=== PATIENT | male | born 1955 | race African-American/Black ===

== ENCOUNTER 2019-05-06 10:06 | Emergency (ER) | payer SELFPAY ==
[~2019-05-06] VITALS: Ht 188 cm; Wt 58.0 kg
[2019-05-06 10:36] LABS: EOSINOPHILS % (AUTO) 0.8 % (1.0-6.0); HEMATOCRIT 44.9 % (41-53); HEMOGLOBIN 15.1 g/dL (13.5-17.5); LYMPHOCYTES # (AUTO) 1.5 K/uL (1.0-4.8); MEAN CORPUSCULAR HEMOGLOBIN 33.8 pg (26.0-34.0); MEAN CORPUSCULAR HGB CONC 33.5 G/dL (31.0-37.0); MEAN CORPUSCULAR VOLUME 101 fL (80-100); MONOCYTES # (AUTO) 0.6 K/uL (0.1-1.0); NEUTROPHILS # (AUTO) 3.1 K/uL (1.8-7.7); NEUTROPHILS % (AUTO) 58.2 % (40.0-70.0); PLATELET COUNT (AUTO) 198 K/uL (150-450); RED BLOOD CELL COUNT(AUTO) 4.46 MIL/uL (4.50-5.90); RED CELL DISTRIBUTION WIDTH 14.1 % (11.5-14.5)
[2019-05-06] MEDS ORDERED: IOVERSOL 350 MG/ML 100 ML VIAL ONE (10:41)
[2019-05-06] MEDS ORDERED: SODIUM CHLORIDE 0.9% 100 ML ONE (10:41)
[2019-05-06 10:50] LABS: ANION GAP 12 mmol/L (8-16); CALCIUM, TOTAL 9.1 mg/dL (8.8-10.5); CARBON DIOXIDE 26 mmol/L (22-29); CHLORIDE 100 mmol/L (98-107); CREATININE 0.76 mg/dL (0.60-1.30); GLUCOSE,RANDOM 101 mg/dL (70-110); POTASSIUM 4.6 mmol/L (3.5-5.1); SODIUM SERUM 138 mmol/L (136-145); UREA NITROGEN, BLOOD 6 mg/dL (7-18)
[2019-05-06 10:51] LABS: GLOMERULAR FILTR. RATE CALC > 60 mL/min (>60)
[2019-05-06 10:56] LABS: ALANINE AMINOTRANSFERASE 31 U/L (12-78); ALKALINE PHOSPHATASE 88 U/L (46-116); ASPARTATE AMINOTRANSFERASE 60 U/L (15-37); BILIRUBIN,TOTAL 0.6 mg/dL (0.1-1.0); TOTAL PROTEIN, SERUM 7.8 g/dL (6.4-8.2)
[2019-05-06] MEDS ORDERED: ALTEPLASE PER STROKE PROTOCOL CLINICAL ONE (11:15)
[2019-05-06] MEDS ORDERED: ALTEPLASE IV ONE (11:20)
[2019-05-06] MEDS ORDERED: ALTEPLASE 5.2 MG in WATER FOR INJECTION,STERILE 5.2 ML IV ONE (11:20)
[2019-05-06] MEDS ORDERED: WATER FOR INJECTION STERILE IV ONE (11:20)
[2019-05-06] MEDS ORDERED: LIDOCAINE 1% 10 ML VIAL INJ ONE (11:30)
[2019-05-06 11:50] LABS: AMMONIA 40 umol/L (11-32)
[2019-05-06 11:52] LABS: INR 1.1 (0.9-1.1); PROTHROMBIN TIME 11.5 SEC (9.4-11.6); TROPONIN I < 0.02 ng/mL (0.00-0.05)
[2019-05-06] MEDS ORDERED: NiCARDipine HCL 25 MG in DEXTROSE 5%-WATER 240 ML IV PRN (12:17)
[2019-05-06 12:38] VITALS: BP 162/110
== END 2019-05-06 13:31 | disposition short-term general hospital (02) ==
LOC: EMS 10:08 → EDBD 10:08 → EMS 13:31
DX: S61.210A Laceration without foreign body of right index finger without damage to nail, initial encounter (principal); I63.9 Cerebral infarction, unspecified; I48.91 Unspecified atrial fibrillation; Z59.0 Homelessness; X58.XXXA Exposure to other specified factors, initial encounter; Y93.89 Activity, other specified; Y92.89 Other specified places as the place of occurrence of the external cause; Y99.8 Other external cause status
CPT/HCPCS: 12001; 36415; 37195; 70450; 70496; 71045; 80053; 82140; 84484; 85025; 85610; 85730; 86850; 86900; 86901; 93005; 96365; 99291; G0480; J2997; J3490 ×2; J7050; J7060; Q9967